=== PATIENT | female | born 1955 | race Caucasian/White ===

== ENCOUNTER → 2020-02-15 | Outpatient (CLI) | payer BC ==
[~2020-02-15] MED LIST: BARIUM SULFATE 135 ML SUSP.RECON (E-Z-HD) PO ONE
== END | disposition home or self-care (01) ==
LOC: SRD 09:19
PROVIDERS: ATTEND Otolaryngology Plastic Surgery within the Head & Neck
DX: K21.9 Gastro-esophageal reflux disease without esophagitis (principal); R05 Cough
CPT/HCPCS: 74220-TC